=== PATIENT | male | born 1945 | race Caucasian/White ===

== ENCOUNTER 2017-04-22 19:07 | Emergency (ER) | payer OTHER ==
[~2017-04-22] VITALS: Ht 170.2 cm; Wt 102.5 kg
[~2017-04-22 19:07] MED LIST: ACETAMINOPHEN325 M1 PO; AFLURIA 2045 MCG/0.4; ALBUTEROL2.5 MG/32 IH; ASMANEX TWISTHALER INH; ASPIRIN325 PO; AVELOX400 MG PO; BASLE60 GM; CARVEDILOL12.5 MG PO; DOXYCYCLINE 10100 MG PO; GLIPIZIDE ER5 MG PO; GLUCOPHAGE500 MG PO; KLOR-CON 1010 MEQ PO; LANTUS SUBQ; LASIX 20 MG TAB20 MG PO; LASIX 40 MG TAB40 M2 PO; NITROQUICK0.4 MG SUBLING; NOVOLOG100 UNIT/1; PNEUMOVAX25 MCG/0.5; PREDNISONE 20 M20 MG PO; PRILOSEC 20 MG20 MG PO; PRINIVIL20 MG PO; PROAIR HFA8.5 GM INH; PROVENTIL HFA6.7 G1 INH; XANAX 0.25 MG0.25 MG PO; ZOCOR80 MG PO
[2017-04-22 20:11] LABS: ABSOLUTE NEUTROPHILS 4.6 thou/uL (1.4-8.2); BASOPHILS 0.7 % (0.0-2.0); EOSINOPHILS 3.2 % (0.0-3.0); HEMATOCRIT 38.5 % (42.0-52.0); HEMOGLOBIN 13.7 gm/dL (14.0-18.0); LYMPHOCYTES 18.8 % (24.0-44.0); MANUAL DIFF NO; MCH 30.7 pg (26.0-34.0); MCHC 35.4 g/dL (28.0-37.0); MCV 86.5 fL (80.0-100.0); MONOCYTES 9.5 % (1.0-8.0); PLATELET COUNT 135 thou/uL (150-400); POLYS 67.8 % (36.0-66.0); RBC 4.45 mil/uL (4.50-6.00); RDW 14.8 % (10.5-14.5); WBC 6.7 thou/uL (4.0-11.0)
[2017-04-22 20:18] LABS: CALCIUM 8.8 mg/dL (8.5-10.1); CREATININE 1.2 mg/dL (0.7-1.3); POTASSIUM 4.1 mmol/L (3.5-5.1)
[2017-04-22] MEDS ORDERED: BACTRIM DS TAB1 EACH PO (21:56)
[2017-04-22] MEDS ORDERED: MOBIC15 MG PO (22:01)
== END 2017-04-22 23:03 | disposition home or self-care (01) ==
LOC: ER 19:07
PROVIDERS: Emergency Medicine
DX: L03.115 Cellulitis of right lower limb (principal); S46.911A Strain of unspecified muscle, fascia and tendon at shoulder and upper arm level, right arm, initial encounter; E11.9 Type 2 diabetes mellitus without complications; I10 Essential (primary) hypertension; G47.30 Sleep apnea, unspecified; E78.5 Hyperlipidemia, unspecified; K21.9 Gastro-esophageal reflux disease without esophagitis; J44.9 Chronic obstructive pulmonary disease, unspecified; F10.99 Alcohol use, unspecified with unspecified alcohol-induced disorder; Z79.4 Long term (current) use of insulin; Z87.891 Personal history of nicotine dependence; W18.30XA Fall on same level, unspecified, initial encounter; Y93.89 Activity, other specified; Y92.89 Other specified places as the place of occurrence of the external cause; Y99.8 Other external cause status